=== PATIENT | female | born 1950 | race Caucasian/White ===

== ENCOUNTER 2025-03-12 15:11 | Emergency (ER) | payer MEDICARE ==
[~2025-03-12] VITALS: Ht 160 cm; Wt 56.0 kg
[2025-03-12 15:13] VITALS: O2SAT 100
[2025-03-12] MEDS: SODIUM CHLORIDE 0.9% 1,000 ML IV ONE (15:48)
[2025-03-12 16:10] LABS: BASOPHILS % 0.7 % (0.0-2.0); EOSINOPHILS % 2.2 % (0.0-5.0); HEMATOCRIT. 42.2 % (36.0-48.0); HEMOGLOBIN. 13.7 g/dL (12.0-16.0); LYMPHOCYTES % 15.9 % (20.0-50.0); MEAN PLATELET VOLUME 10.5 fl (7.4-10.4); MONOCYTES % 7.5 % (2.0-8.0); NEUTROPHILS % 73.7 % (40.0-76.0); PLATELET 235 x1000/uL (130-400); RED BLOOD CELL COUNT 4.51 mill/uL (4.2-5.4); RED CELL DISTRIBUTION WIDTH 14.7 % (11.6-14.6)
[2025-03-12 16:11] LABS: CREATININE 1.0 mg/dL (0.6-1.0); UREA NITROGEN BLOOD 13.0 mg/dL (9-23)
[2025-03-12 17:42] LABS: CLARITY URINE CLEAR (CLEAR); COLOR URINE YELLOW (YELLOW); GLUCOSE URINE NEGATIVE (NEGATIVE); KETONES URINE TRACE (NEGATIVE); LEUKOCYTE ESTERASE URINE 1+ (NEGATIVE); NITRITE URINE POSITIVE (NEGATIVE); OCCULT BLOOD URINE NEGATIVE (NEGATIVE); PH URINE 5.5 (4.5-8.0); PROTEIN URINE NEGATIVE (NEGATIVE); SPECIFIC GRAVITY URINE 1.013 (1.005-1.030); UROBILINOGEN URINE 0.2 E.U./dL (0.2-1.0)
[2025-03-12 18:09] LABS: BACTERIA URINE 2+; RBC URINE 0-2 /hpf (0-2); SQUAMOUS EPITHELIAL CELL URINE FEW /lpf (RARE/1+)
[2025-03-12 18:15] VITALS: BP 133/55; PULSE 77; RESP 16; TEMP 36.7; O2SAT 100
== END 2025-03-12 18:37 | disposition home or self-care (01) ==
LOC: ER 15:11 → EDBD 15:11 → ER 18:37
DX: R55 Syncope and collapse (principal); E11.9 Type 2 diabetes mellitus without complications; I10 Essential (primary) hypertension; Z79.899 Other long term (current) drug therapy; Z88.0 Allergy status to penicillin
CPT/HCPCS: 99284; 96360; 80048; 81003; 85025; 36415; 93005; J7030